=== PATIENT | male | born 1960 | race Caucasian/White ===

== ENCOUNTER 2022-07-11 14:59 | Outpatient (CLI) | payer OTHER, SELFPAY ==
--- OUTSIDE RECORDS SUMMARY | 2022-07-11 09:42 | XMS_ITS ---
:1960 Author Care Team Providers Name Role Phone CHRISTINE HARRIS MD Primary Care Provider [phone] Allergies Code Code System Name Reaction Severity Status Onset NKDA ? Medications Name Status Start Date Stop Date ? ? lisinopril 10 mg tablet Active ? Not avai lable TAKE 1 TABLET BY MOUTH DAILY metformin 500 mg tablet Completed ? 01/05/20 22 TAKE 1 TABLET BY MOUTH DAILY IN THE MORNING AND 2 TABLETS AT [facility] methylphenidate ER 36 mg tablet,extended release 24 hr Active ? Not available TAKE 1 TABLET BY MOUTH EVERY MORNING. metoprolol tartrate 25 mg tablet Active ? Not available TAKE 1 TABLET BY MOUTH TWICE A DAY potassium citrate ER 10 mEq (1,080 mg) tablet,extended release A ctive ? Not available TAKE 1 TABLET BY MOUTH TWICE A DAY (APPT IN JANUARY, [facility]) simvastatin 20 mg tablet Active ? Not angélica ilable TAKE 1 TABLET BY MOUTH AT BEDTIME tamsulosin 0.4 mg capsule Active ? Not av ailable Take 1 capsule every day by oral route. Problems Name Status Onset Date Source ? Kidney Stone Active 05/19/2012 History Procedures Date Name Performed by ? 08/05/2016 Colonoscopy Information not avai lable ? Procedure on Kidney Information not avai lable Notes: Lithotripsy: 1980 Results Lab Results Date Name Specimen Result Interpretation Description Value Range Status Address ? 01/04/2022 Urinalysis, Dipstick ? pH-Status 5.5 ? Nitrates-Status negative ? Blood-Status Negative ? Leuko-Status Negative ? ? 01/04/2022 Urinalysis, Dipstick ? No observation ? ? ? recorded. 10/27/2020 Urinalysis, Dipstick ? No observation ? ? ? recorded. ? Urinalysis, Dipstick ? Color-Status Yellow ? Clarity-Status Clear ? Glucose-Status Negative ? Bilirubin-Status Negative ? Ketones-Status Negative ? Sp Simpson-Status 1.025 ? pH-Status 5.0 ? Urobilinogen-Status 0.2 ? Nitrates-Status negative ? Blood-Status Negative ? Leuko-Status Negative ? Specimen Type Voided ? ? Past Encounters Encounter Date Diagnosis Provider 01/04/2022 Kidney Stone [place] Jair Cassidy MD: [id number] [place] [phone], Ph. Social History Tobacco Smoking Status Never Smoker Vaccine List None recorded. Plan of Care Reminders Provider Appointments None recorded. ? ? Lab None recorded. ? ? Referral None recorded. ? ? Procedures None recorded. ? ? Surgeries None recorded. ? ? Imaging None recorded. ? ? Vitals 01/04/2022 10:20AM ESTABLISHED 10 Height Weight BMI 5 ft 9 in 214 lbs 31.6 kg/m2 10/27/2020 10:10AM ESTABLISHED 10 Height Weight BMI 5 ft 9 in 211 lbs 31.2 kg/m2
[2022-07-11 14:25] LABS: Chloride* 107 mmol/L (96-114); Potassium* 4.7 mmol/L (3.6-5.1); Sodium* 140 mmol/L (135-149)
[2022-07-11 14:28] LABS: Blood Urea Nitrogen* 23 mg/dL (7-30); Carbon Dioxide* 25 mmol/L (20-32); Cholesterol* 142 mg/dL (90-199); Creatinine* 1.4 mg/dL (0.5-1.5); Estimated Glomerular Filt Rate 57 ml/min; Glucose* 98 mg/dL (60-115); Triglycerides* 238 mg/dL (40-149)
[2022-07-11 14:29] LABS: Calcium* 9.2 mg/dL (8.4-10.6); HDL Cholesterol* 41 mg/dL (>=40); LDL Cholesterol Calculated 53 mg/dL (<100)
== END 2022-07-11 15:00 | disposition home or self-care (01) ==
PROVIDERS: PCP Family Medicine; Visit Provider Family Medicine
DX: E78.5 Hyperlipidemia, unspecified (principal); I10 Essential (primary) hypertension; Z12.5 Encounter for screening for malignant neoplasm of prostate
CPT/HCPCS: 80048; 80061; 84153

== ENCOUNTER 2023-09-10 09:22 | Outpatient (CLI) | payer OTHER, SELFPAY | END 2023-09-10 09:23 | disposition home or self-care (01) | PROVIDERS: PCP Family Medicine; Visit Provider Family Medicine | DX: E78.5 Hyperlipidemia, unspecified (principal); I10 Essential (primary) hypertension | CPT/HCPCS: 80048; 80061 ==

== ENCOUNTER 2024-07-20 19:44 | Outpatient (CLI) | payer OTHER, SELFPAY ==
--- NOTE | 2024-08-18 08:19 | W.PM.SLEEP ---
Sleep Study Details Details Interpreting Provider: Jose E Date of Sleep Study: 07/20/24 Sleep Study Details: STUDY TYPE:? Home unattended ? BMI:? 32.2 ORDERING PROVIDER:? Jose E INDICATION:? Concern about sleep apnea ? SLEEP SUMMARY:? 502 minutes monitor RESPIRATORY SUMMARY:? AHI 38.2, left lateral 21, supine 55.8, right lateral 11.8 Low oxygen 81 2.3% of study oxygen less than 90% Snoring 82% PERIODIC LIMB MOVEMENTS OF SLEEP:? Not recorded CARDIAC:? Range 39-93, mean 52.1 IMPRESSION:? Severe obstructive sleep apnea with supine position dependency but present in all positions RECOMMENDATION: Treatment options include in-lab titration, AutoSet CPAP and/or airway expansion surgery.
== END 2024-07-20 19:45 | disposition home or self-care (01) ==
LOC: SLEEP 19:45
PROVIDERS: PCP Family Medicine; Visit Provider Otolaryngology
DX: G47.33 Obstructive sleep apnea (adult) (pediatric) (principal)
CPT/HCPCS: 95806

== ENCOUNTER 2024-09-30 09:59 | Outpatient (CLI) | payer OTHER, SELFPAY | END 2024-09-30 10:00 | disposition home or self-care (01) | PROVIDERS: PCP Family Medicine; Visit Provider Family Medicine | DX: E78.00 Pure hypercholesterolemia, unspecified (principal); I10 Essential (primary) hypertension; Z12.5 Encounter for screening for malignant neoplasm of prostate | CPT/HCPCS: 80048; 80061; G0103 ==